=== PATIENT | female | born 2000 | race Caucasian/White ===

== ENCOUNTER → 2023-06-19 13:47 | Outpatient (REF) | payer OTHER, SELFPAY | LOC: HWRAD 13:47 | PROVIDERS: ATTENDING PHYSICIAN Nurse Practitioner Family; FAMILY PHYSICIAN Nurse Practitioner | DX: N92.6 Irregular menstruation, unspecified (principal) | CPT/HCPCS: 76830; 76856 ==

== ENCOUNTER 2024-04-10 16:54 | Emergency (ER) | payer OTHER, SELFPAY ==
[2024-04-10 17:02] VITALS: BP 110/65
--- NOTE | 2024-04-10 19:08 | ED.GENMED ---
History of Present Illness
General
Chief Complaint: Nose Bleed
Source: patient
Exam Limitations: none
Time Seen by Provider: 04/10/24 18:00
Nursing documentation reviewed up to this point in time: agreed with
History of Present Illness
History of Present Illness:
24-year-old female presenting to the emergency department today with concerns of bleeding mainly from her right nostril over the past 4 hours. Has had intermittent bleeding over the past few weeks and tends to get at this time of year. Denies any
lightheadedness chest pain shortness of breath no trauma. Not on blood thinners.
Past History
Past History
ED Past Medical History: None
ED Past Surgical History: None
Social History
Tobacco: Non-smoker
Alcohol: None
Review of Systems
Review of Systems
Allergies reviewed?: Yes
All Other Systems: ROS reviewed and negative except as documented in HPI and ROS
Phy Exam
Physical Exam
Physical Exam:
GENERAL: Alert , in no apparent distress
EYE: pupils equal and reactive
NECK: Supple, no significant adenopathy.
ENT: Right nostril no active bleeding but does have a few areas of significant dilated blood vessels with small scab. o/p clr, mmm.
CARDIAC: Regular rate and rhythm .
LUNGS: Clear breath sounds bilaterally, no acute respiratory distress, no wheezes/rales/rhonchi
ABDOMEN: Soft, without focal tenderness, no r/g, no cvat
NEUROLOGICAL: Alert and oriented, no focal neuro deficits
SKIN: Warm and dry, skin intact.
MUSCULOSKELETAL: No edema, well perfused.
PSYCH: Normal and appropriate interaction.
Course
Vital Signs
Initial and Last Documented VS:
Initial Vital Signs
Temp Pulse Resp BP Pulse Ox
97.6 F 75 18 110/65 100
04/10/24 17:02 04/10/24 17:02 04/10/24 17:02 04/10/24 17:02 04/10/24 17:02
Last Documented Vital Signs
Temp Pulse Resp BP Pulse Ox
97.6 F 75 18 110/65 100
04/10/24 17:02 04/10/24 17:02 04/10/24 17:02 04/10/24 17:02 04/10/24 17:02
Procedures
Nosebleed
Drug treatment: Lidocaine and Epinephrine
Treatment: Silver nitrate cautery
Post treatment bleeding: none- good control
MDM/Problems Addressed
MDM/Problems Addressed:
24-year-old female presenting to the emergency department with concerns of a nosebleed. Appears to be anterior on examination. This was cauterized with good relief. Advised for ENT follow-up for any persisting symptoms. Return precautions given.
*Critical Care Note
Total Time (30-74mins, 75-104mins- exclusive of procedures): Not Applicable
ED Attending Note
-
Portions of this chart may have been created with voice recognition software.� Occasional wrong word or��sound alike� substitutions may have occurred due to the inherent limitations of voice recognition software.
Discharge Plan
Departure
Patient Disposition: Home (Routine Discharge)
Date of Disposition: 04/10/24
Time of Disposition: 19:08
Patient with high blood pressure during this ER visit?: No
Condition: Good
Covid-19: Not Applicable
Discharge Problem:
Epistaxis
Instructions: Nosebleeds (DC)
Prescriptions:
No Action
Vitamin Tablet
1 tab PO DAILY
acetaminophen 325 MG tablet
650 mg PO Q4HPRN PRN (Reason: mild pain) 0RF
sennosides-docusate sodium 1 TABLET tablet
1 tab PO DAILYPRN PRN (Reason: constipation) Qty: 30 0RF
ferrous sulfate [FeroSul] 325 MG tablet
325 mg PO BID Qty: 60 0RF
ibuprofen 600 MG tablet
600 mg PO Q6HPRN PRN (Reason: moderate pain/cramps) Qty: 60 0RF
cephalexin [Keflex] 500 MG capsule
500 mg PO QID Qty: 40 0RF
Referrals:
NONE,* [Family Provider] -
Casey Juárez MD [Active] - Follow up in 5-7 days
Activity Restrictions/Additional Instructions:
You came to the emergency department today with concerns of nosebleed. You had cauterization performed to the right side. There was some irritated vessel to the left side please try not to irritate this area. Please follow-up closely with the ENT
for any persisting symptoms. Return for any worsening, new or concerning symptoms.
Interventions
Interventions:
*Risk Screen - Suicide Last Done: 04/10/24 17:02
*General Assessment Last Done: 04/10/24 17:02
*Neglect/Abuse Screening Last Done: 04/10/24 17:02
ED- Fall Risk Assessment Last Done: 04/10/24 19:12
*ED COVID-19 Vaccine History Last Done: 04/10/24 17:02
*Nursing Disposition Last Done: 04/10/24 19:12
ED-EENT Assessment Last Done: 04/10/24 18:25
Discharge Date and Time
Print Language: CUBAN
== END 2024-04-10 19:12 | disposition home or self-care (01) ==
LOC: EMR 16:54
PROVIDERS: EMERGENCY PHYSICIAN Emergency Medicine
DX: R04.0 Epistaxis (principal); Z88.6 Allergy status to analgesic agent; Z88.5 Allergy status to narcotic agent; Z91.018 Allergy to other foods
CPT/HCPCS: 99283; 30901